=== PATIENT | female | born 1985 | race Caucasian/White ===

== ENCOUNTER 2017-03-02 18:30 | Outpatient (CLI) | payer OTHER ==
[2017-03-02] MEDS ORDERED: LACTATED RINGERS 500 ML IV ONE (19:08)
[2017-03-02] MEDS ORDERED: LACTATED RINGERS 1,000 ML IV SCH (19:33)
[2017-03-02 20:21] LABS: Bacteria,Urine 1+ /HPF (Negative); Bilirubin,Urine NEG (Negative); Blood,Urine NEG (Negative); Ketones,Urine NEG (Negative); Leukocyte Esterase,Urine NEG (Negative); Nitrite,Urine NEG (Negative); Protein,Urine <15 mg/dL mg/dL (Negative); Urobilinogen,Urine < 2.0 mg/dL (<2.0)
[2017-03-02 22:04] VITALS: BP 132/88
== END 2017-03-02 21:58 | disposition home or self-care (01) ==
LOC: TRG 18:30
PROVIDERS: ATTEND Obstetrics & Gynecology Gynecology
DX: O47.03 False labor before 37 completed weeks of gestation, third trimester (principal); Z3A.33 33 weeks gestation of pregnancy
CPT/HCPCS: 81001; 96360; J7120